=== PATIENT | female | born 1995 | race African-American/Black ===

== ENCOUNTER 2017-04-09 08:33 | Emergency (ER) | payer SELFPAY ==
[~2017-04-09] VITALS: Ht 154.9 cm; Wt 69.4 kg
[~2017-04-09 08:33] MED LIST: ALBU8.5H8 INH; BECL8.7A6 IH; FLUT9.9S NS; MONT10TA9 PO
--- NOTE | 2017-04-09 08:49 | ED.ADGEN ---
Past History Past Medical History: Asthma, Other Past Surgical History: No Surgical History, Other Smoking: Cigarettes Alcohol Use: None Drug Use: Marijuana Adult General Chief Complaint Chief Complaint Asthma HPI HPI Patient is a 22 year old [place] female who presents with shortness of breath. She states this is her asthma attack flaring up. She states this happens several times and she's not taking her Advair. She states she ran out of it several years ago is never had a refill. She states she has a nebulizer at home and yesterday she had use it 4 times. She denies any fevers chills or productive cough. She is 19 weeks, and smokes marijuana and cigarettes. She states she's never been intubated or admitted the ICU for her asthma but has been hospitalized in the past. She denies any abdominal pain, vaginal bleeding or discharge. Review of Systems Review of Systems Constitutional: Denies fever or chills [] Eyes: Denies change in visual acuity, redness, or eye pain [] HENT: Denies nasal congestion or sore throat [] Respiratory: Denies cough, positive for wheezing Cardiovascular: No additional information not addressed in HPI [] GI: Denies abdominal pain, nausea, vomiting, bloody stools or diarrhea [] : Denies dysuria or hematuria [] Musculoskeletal: Denies back pain or joint pain [] Integument: Denies rash or skin lesions [] Neurologic: Denies headache, focal weakness or sensory changes [] Endocrine: Denies polyuria or polydipsia [] Current Medications Current Medications Current Medications Medications (Trade) Dose Ordered Sig/Whitney Start Time Stop Time Status Last Admin Dose Admin Albuterol Sulfate (Ventolin Hfa) 1 puff 1X ONCE 04/09/17 10:00 04/09/17 10:01 DC Albuterol Sulfate (Ventolin) 2.5 mg STK-MED ONCE 04/09/17 08:50 04/09/17 08:51 DC Albuterol/ Ipratropium (Duoneb) 3 ml STK-MED ONCE 04/09/17 09:27 04/09/17 09:28 DC Prednisone (Prednisone) 50 mg 1X ONCE 04/09/17 09:00 04/09/17 09:01 DC 04/09/17 09:00 50 MG Allergies Allergies Allergies Coded Allergies Type Severity Reaction Last Updated Verified No Known Drug Allergies 11/06/15 No Physical Exam Physical Exam Constitutional: Well developed, well nourished, no acute distress, non-toxic appearance. [] HENT: Normocephalic, atraumatic, bilateral external ears normal, oropharynx moist, no oral exudates, nose normal. [] Eyes: PERRLA, EOMI, conjunctiva normal, no discharge. [] Neck: Normal range of motion, no tenderness, supple, no stridor. [] Cardiovascular:Heart rate regular rhythm, no murmur [] Lungs & Thorax: Bilateral breath sounds decreased bilaterally with moderate x- ray wheezing Abdomen: Bowel sounds normal, soft, no tenderness, no masses, no pulsatile masses. [] Skin: Warm, dry, no erythema, no rash. [] Back: No tenderness, no CVA tenderness. [] Extremities: No tenderness, no cyanosis, no clubbing, ROM intact, no edema. [] Neurologic: Alert and oriented X 3, normal motor function, normal sensory function, no focal deficits noted. [] Psychologic: Affect normal, judgement normal, mood normal. [] Current Patient Data Vital Signs Vital Signs Date Time Temp Pulse Resp B/P (MAP) Pulse Ox O2 Delivery O2 Flow Rate FiO2 04/09/17 10:01 113 18 96 04/09/17 09:32 Room Air 04/09/17 09:11 98.4 EKG EKG [] Radiology/Procedures Radiology/Procedures [] Course & Med Decision Making Course & Med Decision Making Pertinent Labs and Imaging studies reviewed. (See chart for details) She presented with wheezing, she received albuterol and a DuoNeb and 50 mg prednisone. Her wheezing has resolved. She's being discharged home with 50 mg prednisone for the next 5 days, albuterol inhaler and instructed stop smoking. She is instructed return back to ER if she has any fevers chills shortness of breath or other concerns. In the set was performed she was not tachypneic or hypoxic. She's being discharged home. Given a work note for today and can return back tomorrow. Final Impression Final Impression Asthma exacerbation Problems: Dragon Disclaimer Dragon Disclaimer This electronic medical record was generated, in whole or in part, using a voice recognition dictation system. EMMY HICKS MD Apr 09, 2017 08:49
[2017-04-09] MEDS ORDERED: ALBUTEROL SULFATE 2.5 MG/3 ML NEBU. ONE (08:50)
[2017-04-09] MEDS ORDERED: ALBUTEROL SULFATE 2.5 MG/0.5 ML NEBU. NEB ONE (09:00)
[2017-04-09] MEDS ORDERED: predniSONE 10 MG TABLET PO ONE (09:00)
[2017-04-09 09:11] VITALS: BP 128/75
[2017-04-09] MEDS ORDERED: IPRATRPIUM/ALBUTEROL 0.5/2.5MG 3 ML NEBU. ONE (09:27)
[2017-04-09] MEDS ORDERED: IPRATRPIUM/ALBUTEROL 0.5/2.5MG 3 ML NEBU. NEB ONE (09:35)
[2017-04-09] MEDS ORDERED: ALBUTEROL SULFATE 8GM INHALER. INH ONE (10:00)
== END 2017-04-09 10:16 | disposition home or self-care (01) ==
LOC: ER 08:33
DX: O99.512 Diseases of the respiratory system complicating pregnancy, second trimester (principal); J45.901 Unspecified asthma with (acute) exacerbation; O99.332 Smoking (tobacco) complicating pregnancy, second trimester; F12.10 Cannabis abuse, uncomplicated; Z3A.19 19 weeks gestation of pregnancy
CPT/HCPCS: 94640; 99285; J7512; J7611; J7613; J7620; 94664

== ENCOUNTER 2017-06-11 14:45 | Emergency (ER) | payer SELFPAY ==
[~2017-06-11] VITALS: Ht 154.9 cm; Wt 71.7 kg
[2017-06-11] MEDS ORDERED: ALBUTEROL SULFATE 2.5 MG/3 ML NEBU. ONE (14:52)
[2017-06-11] MEDS ORDERED: IPRATRPIUM/ALBUTEROL 0.5/2.5MG 3 ML NEBU. ONE (15:14)
[2017-06-11 15:31] VITALS: BP 100/64
--- NOTE | 2017-06-11 15:53 | PHYS DOC ---
Past History Past Medical History: Asthma, Bronchitis Past Surgical History: Other Smoking: Cigarettes Alcohol Use: None Drug Use: Marijuana Adult General Chief Complaint Chief Complaint: ASTHMA HPI HPI Patient is a 22 year old F who presents with shortness of breath. Mohini has asthma which typically requires control her inhalers and daily albuterol. Over the past 2 weeks she has been out of both. She has been moderately short of breath over the past several days but much worse today. This feels similar to previous asthma exacerbations She is currently 23 weeks and managed by [facility]. She did have an appointment today with her OB and found that she had limited blood flow to the placenta. She continues to feel her baby move regularly. She denies discharge or bleeding. Review of Systems Review of Systems Constitutional: Denies fever or chills [] Eyes: Denies change in visual acuity, redness, or eye pain [] HENT: Denies nasal congestion or sore throat [] Respiratory: Negative except history of present illness Cardiovascular: No additional information not addressed in HPI [] GI: Denies abdominal pain, nausea, vomiting, bloody stools or diarrhea [] : Denies dysuria or hematuria [] Musculoskeletal: Denies back pain or joint pain [] Integument: Denies rash or skin lesions [] Neurologic: Denies headache, focal weakness or sensory changes [] Endocrine: Denies polyuria or polydipsia [] Family History Family History Noncontributory Current Medications Current Medications Current Medications Medications (Trade) Dose Ordered Sig/Whitney Start Time Stop Time Status Last Admin Dose Admin Albuterol Sulfate (Ventolin) 2.5 mg STK-MED ONCE 06/11/17 14:52 06/11/17 14:53 DC Albuterol/ Ipratropium (Duoneb) 3 ml STK-MED ONCE 06/11/17 15:14 06/11/17 15:15 DC Allergies Allergies Allergies Coded Allergies Type Severity Reaction Last Updated Verified No Known Drug Allergies 11/06/15 No Physical Exam Physical Exam Constitutional: Well developed, well nourished, no acute distress, non-toxic appearance. [] HENT: Normocephalic, atraumatic, bilateral external ears normal, oropharynx moist, no oral exudates, nose normal. [] Eyes: PERRLA, EOMI, conjunctiva normal, no discharge. [] Neck: Normal range of motion, no tenderness, supple, no stridor. [] Cardiovascular:Heart rate regular rhythm, no murmur [] Lungs & Thorax: Clear to auscultation bilaterally with mild wheezing in all regions Abdomen: Bowel sounds normal, soft, no tenderness, no masses, no pulsatile masses. [] Gravid. heart tones 135 Extremities: No tenderness, no cyanosis, no clubbing, ROM intact, no edema. [] Neurologic: Alert and oriented X 3, normal motor function, normal sensory function, no focal deficits noted. [] Psychologic: Affect normal, judgement normal, mood normal. [] Current Patient Data Vital Signs Vital Signs Date Time Temp Pulse Resp B/P (MAP) Pulse Ox O2 Delivery O2 Flow Rate FiO2 06/11/17 15:31 100 18 100/64 (76) 100 Room Air 06/11/17 14:52 98.3 Course & Med Decision Making Course & Med Decision Making Pertinent Labs and Imaging studies reviewed. (See chart for details) Moderate improvement after 2 breathing treatments. She was given an inhaler to take when she left the ER Dragon Disclaimer Dragon Disclaimer This chart was dictated in whole or in part using Voice Recognition software in a busy, high-work load, and often noisy Emergency Department environment. It may contain unintended and wholly unrecognized errors or omissions. Departure Departure: Impression: Primary Impression: Asthma exacerbation Disposition: 01 HOME, SELF-CARE Condition: IMPROVED Referrals: KATIE ENGEL MD (PCP) Patient Instructions: Asthma, Adult Additional Instructions: Mohini seen in the emergency department for shortness of breath. No emergency medical condition was found on history or physical exam. She received 2 breathing treatments with moderate improvement. She was given an albuterol inhaler and strongly encouraged follow-up with her primary care doctor as soon as possible for further management. She was also advised return to the emergency room if she develops new or worsening symptoms. KATIE GRIFFITH MD Jun 11, 2017 15:53
[2017-06-11] MEDS ORDERED: ALBUTEROL SULFATE 8GM INHALER. INH ONE (16:00)
== END 2017-06-11 16:05 | disposition home or self-care (01) ==
LOC: ER 14:45
DX: J45.901 Unspecified asthma with (acute) exacerbation (principal); F17.210 Nicotine dependence, cigarettes, uncomplicated
CPT/HCPCS: 94640; 99284; J7613; 94664

== ENCOUNTER 2019-04-15 15:59 | Emergency (ER) | payer OTHER ==
[~2019-04-15] VITALS: Ht 154.9 cm; Wt 62.9 kg
[~2019-04-15 15:59] MED LIST changes: +ALBU2.5V8 INH; -ALBU8.5H8 INH; +MONT10TA80 PO; -MONT10TA9 PO
[2019-04-15 16:11] VITALS: BP 126/82
--- NOTE | 2019-04-15 16:26 | PHYS DOC ---
Past History Past Medical History: Asthma, Bronchitis Past Surgical History: Other Smoking: Cigarettes, Less than 1pk/day Alcohol Use: None Drug Use: Marijuana Adult General Chief Complaint Chief Complaint: MULTIPLE COMPLAINTS HPI HPI Patient is a 4-year-old female presents with pelvic pain for approximately the past week. Patient's partner told her today that he was tested positive for gonorrhea. She denies any vaginal discharge. Denies any fever. Denies any dysuria. Patient has been having irregular periods but has a control implant in place. No nausea or vomiting.[] Review of Systems Review of Systems Constitutional: Denies fever or chills [] Eyes: Denies change in visual acuity, redness, or eye pain [] HENT: Denies nasal congestion or sore throat [] Respiratory: Denies cough, reports being out of her medicine for asthma and has been having some shortness of breath and wheezing. Reports not being paid for several days and unable to afford the medicine.[] Cardiovascular: No chest pain or palpitations[] GI: Denies abdominal pain, nausea, vomiting, bloody stools or diarrhea [] : Denies dysuria or hematuria , see history of present illness[] Musculoskeletal: Denies back pain or joint pain [] Integument: Denies rash or skin lesions [] Neurologic: Denies headache, focal weakness or sensory changes [] Endocrine: Denies polyuria or polydipsia [] All other systems were reviewed and found to be within normal limits, except as documented in this note. Allergies Allergies Allergies Coded Allergies Type Severity Reaction Last Updated Verified No Known Drug Allergies 11/06/15 No Physical Exam Physical Exam Constitutional: Well developed, well nourished, no acute distress, non-toxic appearance. [] HENT: Normocephalic, atraumatic, bilateral external ears normal, oropharynx moist, no oral exudates, nose normal. [] Eyes: PERRLA, EOMI, conjunctiva normal, no discharge. [] Neck: Normal range of motion, no tenderness, supple, no stridor. [] Cardiovascular:Heart rate regular rhythm, no murmur [] Lungs & Thorax: Scattered wheezes[] Abdomen: Bowel sounds normal, soft, no tenderness, no masses, no pulsatile masses. [] Skin: Warm, dry, no erythema, no rash. [] Back: No tenderness, no CVA tenderness. [] Extremities: No tenderness, no cyanosis, no clubbing, ROM intact, no edema. [] Neurologic: Alert and oriented X 3, normal motor function, normal sensory function, no focal deficits noted. [] Psychologic: Affect normal, judgement normal, mood normal. [] Current Patient Data Vital Signs Vital Signs Date Time Temp Pulse Resp B/P (MAP) Pulse Ox O2 Delivery O2 Flow Rate FiO2 04/15/19 16:11 98.1 97 18 99 Room Air EKG EKG [] Radiology/Procedures Radiology/Procedures [] Course & Med Decision Making Course & Med Decision Making Pertinent Labs and Imaging studies reviewed. (See chart for details) ED course: Patient arrived, was placed in bed, in tolerated exam well. She was given medications to cover for both gonorrhea and chlamydia. She was given an inhaler to help with her asthma. She was discharged in improved condition with all questions answered. Medical decision making: Patient does not appear to have urinary tract infection given that her urine was nitrate negative and leukocyte esterase negative. She is not . No evidence of tubo-ovarian abscess. No evidence of hypoxia. No evidence of status asthmaticus.[] Dragon Disclaimer Dragon Disclaimer This electronic medical record was generated, in whole or in part, using a voice recognition dictation system. Departure Departure: Impression: Primary Impression: Exposure to STD Additional Impression: Asthma Disposition: 01 HOME, SELF-CARE Condition: IMPROVED Referrals: MIGUEL TORRES MD (PCP) Follow-up in 2 days Patient Instructions: Asthma Prevention-Brief, Asthma, Adult, Gonorrhea, Females and Males Additional Instructions: Stop smoking! Follow-up with your regular doctor in 2 days. Return to the ER if worsening pain or any other concerns. Scripts Albuterol Sulfate (VENTOLIN HFA INHALER) 18 Gm Hfa.aer.ad 2 PUFF IH PRN Q4HRS PRN for FOR ASTHMA, #1 INHALER 0 Refills Prov: GUICHO ARRIAGA DO 04/15/19 Problem Qualifiers Additional Impression: Asthma Asthma severity: unspecified severity Asthma persistence: intermittent Asthma complication type: with acute exacerbation Qualified Codes: J45.21 - Mild intermittent asthma with (acute) exacerbation GUICHO ARRIAGA DO Apr 15, 2019 16:26
[2019-04-15] MEDS ORDERED: ALBUTEROL SULFATE 8GM INHALER. INH PRN (16:30)
[2019-04-15] MEDS ORDERED: AZITHROMYCIN 250 MG TABLET. PO ONE (16:45)
[2019-04-15] MEDS ORDERED: cefTRIAXone IM 250 MG VIAL IM ONE (16:45)
[2019-04-15] MEDS ORDERED: ALBU2.5V8 IH (16:46)
[2019-04-15 17:07] LABS: BILIRUBIN,URINE NEG (NEG); CLARITY,URINE CLEAR; COLOR,URINE YELLOW; GLUCOSE,URINE NEG (NEG); NITRITE,URINE NEG (NEG); UROBILINOGEN,URINE 0.2 mg/dL (0.2 mg/dL)
== END 2019-04-15 16:55 | disposition home or self-care (01) ==
LOC: ER 15:59
DX: Z20.2 Contact with and (suspected) exposure to infections with a predominantly sexual mode of transmission (principal); J45.21 Mild intermittent asthma with (acute) exacerbation; F17.210 Nicotine dependence, cigarettes, uncomplicated
CPT/HCPCS: 36415; 81003; 81025; 87491; 87591; 94640; 96372; 99284; J0456; J0696; J7613